=== PATIENT | male | born 1945 | race Caucasian/White ===

== ENCOUNTER → 2016-09-10 | Outpatient (CLI) | payer MEDICARE ==
[~2016-09-10] MED LIST: CETI10 PO; CHOL50006 PO; D 50CAP PO; FISHCAP PO; OMEG1CAP73 PO; VITA100020 IM
[2016-09-10 07:20] LABS: AUTOMATED NEUTROPHIL # 1.7 TH/MM3 (1.8-7.7); BASOPHIL % 0.7 % (0.0-2.0); EOSINOPHIL # 0.4 TH/MM3 (0-0.4); EOSINOPHIL % 7.7 % (0.0-4.0); HEMATOCRIT 44.1 % (39.0-51.0); HEMO FLAGS DIFF FINAL; LYMPH % 45.1 % (9.0-44.0); LYMPHOCYTE # 2.2 TH/MM3 (1.0-4.8); MEAN CELL VOLUME 85.6 FL (80.0-100.0); MEAN CORPUSCULAR HEMOGLOBIN 29.2 PG (27.0-34.0); MEAN CORPUSCULAR HGB CONC 34.1 % (32.0-36.0); MONO % 11.7 % (0.0-8.0); NEUT % 34.8 % (16.0-70.0); PLATELET COUNT 210 TH/MM3 (150-450); RED BLOOD COUNT 5.15 MIL/MM3 (4.50-5.90); RED CELL DISTRIBUTION WIDTH 14.1 % (11.6-17.2); WHITE BLOOD COUNT 4.8 TH/MM3 (4.0-11.0)
[2016-09-10 07:42] LABS: ALKALINE PHOSPHATASE 111 U/L (45-117); ALT (GPT) 24 U/L (12-78); ANION GAP 7 MEQ/L (5-15); AST (GOT) 25 U/L (15-37); BICARBONATE 25.6 MEQ/L (21.0-32.0); BLOOD UREA NITROGEN 20 MG/DL (7-18); CHLORIDE 108 MEQ/L (98-107); GLOMERULAR FILTRATION RATE 73 ML/MIN (>89); GLUCOSE,FASTING 90 MG/DL (74-99); HDL CHOLESTEROL 65.2 MG/DL (40.0-60.0); LDL CHOLESTEROL 132 MG/DL (0-99); POTASSIUM 3.9 MEQ/L (3.5-5.1); SODIUM (NA) 141 MEQ/L (136-145); TOTAL BILIRUBIN ADULT 0.6 MG/DL (0.2-1.0)
== END ==
LOC: CLAB 06:43
PROVIDERS: ATTEND Urology
DX: C61 Malignant neoplasm of prostate (principal); N20.0 Calculus of kidney; J30.89 Other allergic rhinitis; E55.9 Vitamin D deficiency, unspecified; E78.2 Mixed hyperlipidemia
CPT/HCPCS: 36415; 80053; 80061; 82306; 84153; 85025

== ENCOUNTER → 2016-10-24 | Day surgery (SDC) | payer MEDICARE ==
[~2016-10-24] VITALS: Ht 177.8 cm; Wt 85.1 kg
[~2016-10-24] MED LIST changes: +BUPIVACAINE HCL PF 0.5% 30 ML VIAL ONE; +CHLORHEXIDINE GLUCONATE 2 % 1 PACK (2 CLOTHS) TOPICAL PRN; -CHOL50006 PO; +DO NOT ADM ANY ANTICOAGULANT DRUGS PRN; +FAMOTIDINE 20 MG/2 ML VIAL ONE; -FISHCAP PO; +HYDROmorphone HCL PF 1 MG/ML VIAL IV PRN; +INSULIN HUMAN REGULAR 1,000 UNITS/10 ML VIAL SQ PRN; +LACTATED RINGER'S 1000 ML IV PRN; +METOPROLOL TARTRATE 25 MG TAB PO PRN; +MIDAZOLAM HCL 2 MG/2 ML VIAL ONE; +ONDANSETRON HCL 4 MG/2 ML VIAL IV PUSH ONE; +ONDANSETRON HCL 4 MG/2 ML VIAL IV PUSH PRN; +POVIDONE IODINE 5% (ANTISEPSIS KIT) 4 APPLICATIONS EACH NARE PRN; +PROPOFOL 200 MG/20 ML AMP IV ONE; +SODIUM CHLORID 0.9% 500 ML IV PRN; -VITA100020 IM; +VITATAB11; +ceFAZolin 1,000 MG/NS 100 ML IV SCH; +oxyCODONE/ACETAMINOPHEN 5 MG/325 MG TAB ONE; +oxyCODONE/ACETAMINOPHEN 5 MG/325 MG TAB PO PRN
[2016-10-24 07:03] VITALS: BP 142/85; PULSE 74; RESP 20; TEMP 97.4; O2SAT 97
[2016-10-24 07:14] LABS: BASOPHIL % 0.9 % (0.0-2.0); EOSINOPHIL # 0.2 TH/MM3 (0-0.4); EOSINOPHIL % 4.5 % (0.0-4.0); HEMATOCRIT 45.7 % (39.0-51.0); HEMO FLAGS DIFF FINAL; LYMPH % 44.7 % (9.0-44.0); LYMPHOCYTE # 2.4 TH/MM3 (1.0-4.8); MEAN CELL VOLUME 87.1 FL (80.0-100.0); MEAN CORPUSCULAR HEMOGLOBIN 29.3 PG (27.0-34.0); MEAN CORPUSCULAR HGB CONC 33.7 % (32.0-36.0); MONO % 13.5 % (0.0-8.0); NEUT % 36.4 % (16.0-70.0); PLATELET COUNT 224 TH/MM3 (150-450); RED BLOOD COUNT 5.24 MIL/MM3 (4.50-5.90); RED CELL DISTRIBUTION WIDTH 13.8 % (11.6-17.2); WHITE BLOOD COUNT 5.4 TH/MM3 (4.0-11.0)
--- NOTE | 2016-10-24 09:32 | PD.OP ---
Operative Report Date of Surgery: Oct 24, 2016 Preoperative Diagnosis: Left hydrocele Postoperative Diagnosis: Same Procedure: Left hydrocelectomy Anesthesia: Gen. LMA Surgeon: Nav Vaughan Grain Elevator Agent(s): Crissy Resident Surgeon: None Operation and Findings: 71-year-old male with a history of a left hydrocele status post repair 25 years ago now presents with recurrence of left hydrocele. Patient elected to undergo left hydrocelectomy. Risk and benefits were discussed preoperatively he is willing to proceed. Patient was brought to the operating room and identified myself as Yaakov Torres. He was placed on the operating table in the supine position, prepped and draped in usual sterile fashion, received preprocedure antibiotics, and general LMA anesthesia was administered. 15 blade was used to make the opening incision over the left hemiscrotum. The dartos fascia was identified and cut and then the surrounding layers around the hydrocele were then dissected and peeled back. Once the sac was down to its last layer, it was entered and the fluid was drained from the hydrocele. The redundant sac was then cut and trimmed. This was sent to pathology. The sac was then inverted and bottlenecked, and a 3-0 Vicryl suture and running locking fashion was used to oversew the sac. This was done in 2 layers with 3-0 chromic suture. The edges were also cauterized to obtain hemostasis. The scrotal wall was also bovied to obtain hemostasis. Jean Marie was then used and placed into the left hemiscrotum. Decision was made to not leave a drain at this point. The dartos layer was closed with a running 3-0 Vicryl suture followed by a 4-0 Vicryl suture in running fashion was used to close the skin. Fluffs and scrotal support were placed and he was extubated and transferred stable condition. He tolerated the procedure well. He'll follow-up in the office in a few weeks for a wound check. Nav Vaughan DO Oct 24, 2016 09:32
[2016-10-24 10:50] VITALS: BP 135/79; PULSE 62; RESP 18; TEMP 97.2; O2SAT 98
--- NOTE | 2016-10-24 15:27 | EKG ---
Date Performed: 10/24/2016 Time Performed: 07:06:20 PTAGE: 71 years EKG: Sinus rhythm NORMAL ECG Compared to prior tracing no significant change PREVIOUS TRACING : 03/13/2009 08.55 DOCTOR: Jimmy Shaw Interpretating Date/Time 10/24/2016 15:25:46
== END | disposition home or self-care (01) ==
LOC: HSDC 06:00
PROVIDERS: ATTEND Urology
DX: N43.3 Hydrocele, unspecified (principal); Z88.8 Allergy status to other drugs, medicaments and biological substances
CPT/HCPCS: 55040; 85025; 88302; 93005; J0690; J2250; J2405; J3010; J7120